=== PATIENT | male | born 1935 | race African-American/Black ===

== ENCOUNTER 2020-11-25 22:09 | Inpatient (IN) | payer MEDICARE ==
[~2020-11-25] VITALS: Ht 182.9 cm; Wt 78.5 kg
[2020-11-25] MEDS ORDERED: SPIR50TA5 MT (22:30)
[2020-11-25] MEDS ORDERED: FURO-151 MT (22:31)
[2020-11-25] MEDS ORDERED: PRAV40TA58 MT (22:32)
[2020-11-25] MEDS ORDERED: CARVEDILOL (22:33)
[2020-11-25] MEDS ORDERED: ALLOPURINOL (22:34)
[2020-11-26] MEDS ORDERED: NA PHOS,M-B/NA PHOS,DI-BA ENEMA 118ML PR ONE (00:15)
[2020-11-26] MEDS ORDERED: SODIUM CHLORIDE 0.9% 1,000 ML IV ONE (01:00)
[2020-11-26 02:10] LABS: BASOPHILS % 0.7 % (0.0-2.0); HEMATOCRIT. 40.2 % (42.0-52.0); HEMOGLOBIN. 13.5 g/dL (14.0-18.0); LYMPHOCYTES % 12.4 % (20.0-50.0); MEAN CORPUSCULAR HEMOGLOBIN 34.2 pg (28.0-32.0); MEAN CORPUSCULAR VOLUME 101.8 fL (80.0-94.0); MEAN PLATELET VOLUME 9.4 fl (7.4-10.4); MONOCYTES % 8.4 % (2.0-8.0); NEUTROPHILS % 77.5 % (40.0-76.0); PLATELET 144 x1000/uL (130-400); RED BLOOD CELL COUNT 3.95 mill/uL (4.7-6.1); RED CELL DISTRIBUTION WIDTH 16.1 % (11.6-14.6)
[2020-11-26 02:14] LABS: CHLORIDE 95 mEq/L (98-107)
[2020-11-26 03:04] LABS: INR 1.1; PROTHROMBIN TIME 11.9 sec (9.6-11.0)
[2020-11-26 04:36] LABS: CLARITY URINE CLEAR (CLEAR); COLOR URINE YELLOW (YELLOW); KETONES URINE NEGATIVE (NEGATIVE); LEUKOCYTE ESTERASE URINE NEGATIVE (NEGATIVE); NITRITE URINE NEGATIVE (NEGATIVE); OCCULT BLOOD URINE TRACE (NEGATIVE); PH URINE 6.5 (4.5-8.0); PROTEIN URINE TRACE (NEGATIVE); SPECIFIC GRAVITY URINE 1.008 (1.005-1.030); UROBILINOGEN URINE 0.2 E.U./dL (0.2-1.0)
[2020-11-26 10:19] LABS: CREATINE KINASE 125 IU/L (39-308)
[2020-11-26 10:56] LABS: HEPATITIS B SURFACE ANTIGEN NEGATIVE
[2020-11-26] MEDS ORDERED: SODIUM CHLORIDE 0.45% 1,000 ML IV SCH (11:00)
[2020-11-26 11:29] LABS: BASOPHILS % 0.5 % (0.0-2.0); EOSINOPHILS % 1.1 % (0.0-5.0); HEMATOCRIT. 38.3 % (42.0-52.0); HEMOGLOBIN. 13.1 g/dL (14.0-18.0); LYMPHOCYTES % 14.1 % (20.0-50.0); MEAN CORPUSCULAR HEMOGLOBIN 34.1 pg (28.0-32.0); MEAN CORPUSCULAR VOLUME 100.2 fL (80.0-94.0); MEAN PLATELET VOLUME 9.3 fl (7.4-10.4); MONOCYTES % 10.4 % (2.0-8.0); NEUTROPHILS % 73.9 % (40.0-76.0); PLATELET 139 x1000/uL (130-400); RED BLOOD CELL COUNT 3.83 mill/uL (4.7-6.1); RED CELL DISTRIBUTION WIDTH 15.8 % (11.6-14.6)
[2020-11-26 11:38] LABS: CHLORIDE 98 mEq/L (98-107)
[2020-11-26] MEDS: MAGNESIUM CITRATE 300ML SOLUTION PO NR ×2 (12:26→17:46)
[2020-11-26] MEDS: APIXABAN 2.5 MG TABLET PO SCH ×2 (12:27→17:46)
[2020-11-26 15:25] LABS: CREATINE KINASE MB FRACTION 1.6 ng/mL (0.5-3.6)
[2020-11-26 22:00] VITALS: BP 121/77
[2020-11-27 00:13] LABS: CREATINE KINASE MB FRACTION 1.1 ng/mL (0.5-3.6)
[2020-11-27 04:00] VITALS: BP 107/58
[2020-11-27 07:33] LABS: BASOPHILS % 0.6 % (0.0-2.0); EOSINOPHILS % 2.1 % (0.0-5.0); HEMATOCRIT. 39.4 % (42.0-52.0); HEMOGLOBIN. 13.2 g/dL (14.0-18.0); MEAN CORPUSCULAR VOLUME 101.3 fL (80.0-94.0); MONOCYTES % 9.7 % (2.0-8.0); NEUTROPHILS % 64.6 % (40.0-76.0); PLATELET 135 x1000/uL (130-400); RED BLOOD CELL COUNT 3.89 mill/uL (4.7-6.1); RED CELL DISTRIBUTION WIDTH 16.2 % (11.6-14.6)
[2020-11-27 08:00] VITALS: BP 109/63
[2020-11-27 08:09] LABS: CHLORIDE 98 mEq/L (98-107)
[2020-11-27 08:16] LABS: LDL CHOLESTEROL 76 mg/dL (5-100)
[2020-11-27 08:18] LABS: HDL CHOLESTEROL 89 mg/dL (40-59)
[2020-11-27] MEDS: APIXABAN 2.5 MG TABLET PO SCH (09:11)
[2020-11-27 10:45] LABS: *BARBITURATES SCREEN URINE NEGATIVE (NEGATIVE)
[2020-11-27 10:46] LABS: *AMPHETAMINES SCREEN URINE NEGATIVE (NEGATIVE); *BENZODIAZEPINES SCREEN URINE NEGATIVE (NEGATIVE); *COCAINE SCREEN URINE NEGATIVE (NEGATIVE); METHADONE URINE SCREEN NEGATIVE (NEGATIVE); OPIATES URINE SCREEN NEGATIVE (NEGATIVE); PHENCYCLIDINE URINE SCREEN NEGATIVE (NEGATIVE)
[2020-11-27 10:47] LABS: CANNABINOID URINE SCREEN NEGATIVE (NEGATIVE)
[2020-11-27 12:00] VITALS: BP 120/63
[2020-11-27 12:13] LABS: CHLORIDE 96 mEq/L (98-107)
[2020-11-27 13:34] VITALS: BP 109/63
== END 2020-11-27 14:20 | disposition home or self-care (01) | DRG 393 ==
LOC: ER 22:09 → 6EST 11-26 05:06 → ENRESERV 11-26 18:49
PROVIDERS: ADMIT Family Medicine; ATTEND Family Medicine
DX: K62.89 Other specified diseases of anus and rectum (principal); N17.0 Acute kidney failure with tubular necrosis; I13.0 Hypertensive heart and chronic kidney disease with heart failure and stage 1 through stage 4 chronic kidney disease, or unspecified chronic kidney disease; E87.3 Alkalosis; N18.4 Chronic kidney disease, stage 4 (severe); I48.91 Unspecified atrial fibrillation; I50.9 Heart failure, unspecified; E78.5 Hyperlipidemia, unspecified; K21.9 Gastro-esophageal reflux disease without esophagitis; M16.0 Bilateral primary osteoarthritis of hip; G89.29 Other chronic pain; M54.50 Low back pain, unspecified; N40.0 Benign prostatic hyperplasia without lower urinary tract symptoms; K74.60 Unspecified cirrhosis of liver; Z96.651 Presence of right artificial knee joint; M10.9 Gout, unspecified; N28.1 Cyst of kidney, acquired; R73.9 Hyperglycemia, unspecified; Z79.01 Long term (current) use of anticoagulants; Z79.899 Other long term (current) drug therapy; Z95.2 Presence of prosthetic heart valve; Z82.49 Family history of ischemic heart disease and other diseases of the circulatory system; K59.00 Constipation, unspecified
CPT/HCPCS: 36415; 71045; 74018; 74176; 76770; 80053; 80061; 80305; 81003; 82550; 82553; 83036; 84484; 85025; 86705; 86709; 86803; 87340; 93970; 96360; 99285; J7030